=== PATIENT | male | born 1955 ===

== ENCOUNTER 2018-11-05 22:13 | Emergency (ER) | payer SELFPAY ==
[~2018-11-05] VITALS: Ht 172.7 cm; Wt 98.4 kg
[2018-11-05] MEDS: IV NORMAL SALINE 1000 ML BAG IV ONE (22:31)
[2018-11-05] MEDS: ONDANSETRON 4 MG/2 ML VIAL IV ONE (22:32)
[2018-11-05] MEDS ORDERED: HYDROMORPHONE 1 MG/1 ML DISP.SYRIN ONE (22:34)
[2018-11-05] MEDS: HYDROMORPHONE 1 MG/1 ML DISP.SYRIN IV ONE (22:34)
[2018-11-05] MEDS ORDERED: ONDANSETRON 4 MG/2 ML VIAL ONE (22:34)
[2018-11-05] MEDS ORDERED: VANCOMYCIN IV 200 ML ONE (22:34)
[2018-11-05] MEDS: VANCOMYCIN IV 1,000 MG in IV DEXTROSE 5% 250 ML IV ONE (22:36)
--- NOTE | 2018-11-05 23:41 | NUR ---
Patient discharged to home in stable conditon. Written and verbal after care instructions given. Patient verbalizes understanding of instructions. Pt walked out of ER via crutches. Pt states friend will pick him up and drive him home. No acute distress noted. Vital signs stable. Respirations even + unlabored.
--- NOTE | 2018-11-05 23:41 | NUR ---
IV removed. Catheter intact and site benign. Pressure and 4x4 gauze applied to site. No bleeding noted.
[2018-11-05 23:55] VITALS: BP 138/66
== END 2018-11-05 23:56 | disposition home or self-care (01) ==
LOC: ER 22:16
DX: L03.116 Cellulitis of left lower limb (principal)
CPT/HCPCS: 96365; 96375; 99283; J1170; J2405; J3370; A4663